=== PATIENT | female | born 1975 | race Hispanic/Latino ===

== ENCOUNTER 2017-07-25 09:58 | Outpatient (CLI) | payer MEDICAID ==
--- NOTE | 2017-07-26 10:37 | Mammography Report ---
BILATERAL DIGITAL SCREENING MAMMOGRAM WITH CAD:07/25/17 CLINICAL: Baseline screening. FINDINGS: The breasts are mostly fatty with a few bilateral scattered fibroglandular densities.A right outer asymmetry with architectural distortion on the CC view requires additional imaging. No suspicious calcifications. The left breast is negative. IMPRESSION: Right asymmetry and architectural distortion requiring further workup. BI-RADS CATEGORY: 0 -- Needs Additional Imaging RECOMMENDATION: Recall for right ML, exaggerated CC and spot magnification CC views and right breast ultrasound if needed. ACR BI-RADS MAMMOGRAPHIC CODES: 0 = Needs additional imaging evaluation; 1 = Negative; 2 = Benign; 3 = Probably benign; 4 = Suspicious; 5 = Malignant; 6 = Known biopsy-proven malignancy COMMENT: 1. Dense breast tissue, i.e., adenosis, fibrocystic changes, etc., may obscure an underlying neoplasm. 2. Approximately 10% of cancers are not detected with mammography. 3. A negative mammography report should not delay biopsy if a clinically suspicious mass is present.
== END 2017-07-25 09:59 | disposition home or self-care (01) ==
LOC: MAMMO 09:58
PROVIDERS: ATTEND Physician Assistant
DX: Z12.31 Encounter for screening mammogram for malignant neoplasm of breast (principal)
CPT/HCPCS: 77067

== ENCOUNTER 2017-08-26 09:12 | Emergency (ER) | payer MEDICAID ==
[2017-08-26 09:29] VITALS: BP 122/74
[2017-08-26 10:04] LABS: Basophils % (Auto) 0.4 % (0.0-1.8); Eosinophils # (Auto) 0.2 K/mm3 (0.0-0.4); Eosinophils % (Auto) 3.8 % (0.0-4.3); Hematocrit 36.5 % (30.3-42.9); Lymphocytes # (Auto) 1.9 K/mm3 (1.2-5.4); Lymphocytes % (Auto) 34.5 % (13.4-35.0); Mean Corpuscular HGB Conc 36 % (30-34); Mean Corpuscular Hemoglobin 30 pg (28-32); Mean Corpuscular Volume 84 fl (79-97); Monocytes # (Auto) 0.4 K/mm3 (0.0-0.8); Monocytes % (Auto) 7.1 % (0.0-7.3); Platelet Count 371 K/mm3 (140-440); Red Blood Count 4.32 M/mm3 (3.65-5.03); Red Cell Distribution Width 13.7 % (13.2-15.2)
[2017-08-26 10:21] LABS: Alanine Aminotransferase 26 units/L (7-56); Albumin 3.7 g/dL (3.9-5); BUN/Creatinine Ratio 14; Blood Urea Nitrogen 11 mg/dL (7-17); Calcium 9.1 mg/dL (8.4-10.2); Hemolysis Index 9
--- NOTE | 2017-08-26 12:44 | Emergency Department Report ---
ED Abdominal Pain HPI - General Chief Complaint: Abdominal Pain Stated Complaint: LEFT SIDE ABDOMINAL PAIN Time Seen by Provider: 08/26/17 12:24 Source: patient Mode of arrival: Ambulatory Limitations: No Limitations - History of Present Illness Initial Comments: Left lower quadrant pain for 1 day no vaginal bleeding no vaginal discharge thinks it radiates to her kidney?, dysuria, c/o l side abd pain for several days , no fever no nausea vomiting or diarrhea MD Complaint: abdominal pain -: Gradual, days(s) Location: LUQ Radiation: LUQ Migration to: L flank Severity: mild, moderate Quality: cramping Consistency: intermittent Associated Symptoms: denies: nausea, vomiting, diarrhea, fever, chills, constipation, dysuria, hematemesis, hematochezia, melena, hematuria, anorexia, syncope - Related Data Home Medications Medication Instructions Recorded Confirmed Last Taken OLANzapine [ZyPREXA] 10 mg PO QDAY 01/20/13 03/08/14 03/08/13 Potassium 99 mg PO DAILY 01/20/13 03/08/14 03/08/13 Pravastatin Sodium [Pravastatin] mg PO HS 01/20/13 03/08/14 03/08/13 Topiramate [Topamax] 100 mg PO BID 03/09/13 03/08/14 03/08/13 Lisinopril [Zestril] 10 mg PO QDAY 03/08/14 03/08/14 Unknown Previous Rx's Medication Instructions Recorded Last Taken Type ALPRAZolam [Xanax TAB] 0.5 mg PO BID PRN #10 tab 03/08/14 Unknown Rx Butalb/Acetamin/Caff 50-325-40 1 each PO Q4H PRN #20 tablet 03/08/14 Unknown Rx [Fioricet] traMADol [Ultram 50 MG tab] 50 mg PO Q4HR PRN #15 tablet 03/08/14 Unknown Rx Amoxicillin [Trimox CAP] 500 mg PO Q8H #30 capsule 05/15/15 Unknown Rx Loratadine [Claritin] 10 mg PO DAILY #30 tablet 05/15/15 Unknown Rx Promethazine /Codeine 5 ml PO Q6H PRN #150 ml 05/15/15 Unknown Rx [Phenergan/Codeine 6.25-10 mg/5 ml] predniSONE [Deltasone] 20 mg PO QDAY #5 tab 05/15/15 Unknown Rx Ibuprofen [Motrin] 400 mg PO Q8H PRN #30 tablet 08/26/17 Unknown Rx Allergies Allergy/AdvReac Type Severity Reaction Status Date / Time codeine Allergy Itching Verified 01/20/13 10:49 Sulfa (Sulfonamide Allergy Itching Verified 01/20/13 10:49 Antibiotics) ED Review of Systems ROS: Stated complaint: LEFT SIDE ABDOMINAL PAIN Other details as noted in HPI Comment: All other systems reviewed and negative Constitutional: denies: diaphoresis, fever, malaise Eyes: denies: eye discharge, vision change ENT: denies: dental pain, hearing loss, epistaxis Respiratory: denies: shortness of breath, SOB with exertion, SOB at rest, stridor Cardiovascular: denies: chest pain, palpitations, dyspnea on exertion, orthopnea , edema, syncope, paroxysmal nocturnal dyspnea Gastrointestinal: abdominal pain. denies: nausea, vomiting, diarrhea, constipation, hematemesis, melena, hematochezia Skin: denies: rash, lesions, change in color, change in hair/nails, pruritus Neurological: denies: headache, weakness, numbness, paresthesias, confusion, abnormal gait, vertigo Hematological/Lymphatic: denies: easy bleeding, easy bruising, swollen glands ED Past Medical Hx - Past Medical History Hx Headaches / Migraines: Yes Hx Psychiatric Treatment: Yes (Bipolar) Hx Asthma: Yes - Surgical History Hx Cholecystectomy: Yes - Social History Smoking Status: Never Smoker Substance Use Type: None - Medications Home Medications: Home Medications Medication Instructions Recorded Confirmed Last Taken Type OLANzapine [ZyPREXA] 10 mg PO QDAY 01/20/13 03/08/14 03/08/13 History Potassium 99 mg PO DAILY 01/20/13 03/08/14 03/08/13 History Pravastatin Sodium [Pravastatin] mg PO HS 01/20/13 03/08/14 03/08/13 History Topiramate [Topamax] 100 mg PO BID 03/09/13 03/08/14 03/08/13 History ALPRAZolam [Xanax TAB] 0.5 mg PO BID PRN #10 tab 03/08/14 Unknown Rx Butalb/Acetamin/Caff 50-325-40 1 each PO Q4H PRN #20 tablet 03/08/14 Unknown Rx [Fioricet] Lisinopril [Zestril] 10 mg PO QDAY 03/08/14 03/08/14 Unknown History traMADol [Ultram 50 MG tab] 50 mg PO Q4HR PRN #15 tablet 03/08/14 Unknown Rx Amoxicillin [Trimox CAP] 500 mg PO Q8H #30 capsule 05/15/15 Unknown Rx Loratadine [Claritin] 10 mg PO DAILY #30 tablet 05/15/15 Unknown Rx Promethazine /Codeine 5 ml PO Q6H PRN #150 ml 05/15/15 Unknown Rx [Phenergan/Codeine 6.25-10 mg/5 ml] predniSONE [Deltasone] 20 mg PO QDAY #5 tab 05/15/15 Unknown Rx Ibuprofen [Motrin] 400 mg PO Q8H PRN #30 tablet 08/26/17 Unknown Rx ED Physical Exam - General Limitations: No Limitations General appearance: alert, in no apparent distress, anxious - Head Head exam: Present: atraumatic, normocephalic - Eye Eye exam: Present: normal appearance, PERRL, EOMI - ENT ENT exam: Present: normal exam, normal orophraynx - Neck Neck exam: Present: normal inspection. Absent: tenderness, meningismus - Respiratory Respiratory exam: Present: normal lung sounds bilaterally. Absent: respiratory distress, wheezes, rales, rhonchi, stridor, chest wall tenderness, accessory muscle use, decreased breath sounds, prolonged expiratory - Cardiovascular Cardiovascular Exam: Present: regular rate, normal rhythm - GI/Abdominal GI/Abdominal exam: Present: soft, tenderness, other (tenderness epigastric left upper quadrant without rebound or guarding). Absent: guarding, rebound, rigid - Extremities Exam Extremities exam: Present: normal inspection, normal capillary refill. Absent: pedal edema, joint swelling, calf tenderness - Back Exam Back exam: Present: normal inspection. Absent: CVA tenderness (L), muscle spasm , paraspinal tenderness, vertebral tenderness - Neurological Exam Neurological exam: Present: alert, oriented X3, CN II-XII intact. Absent: motor sensory deficit - Psychiatric Psychiatric exam: Present: anxious - Skin Skin exam: Present: warm, normal color. Absent: urticaria, vesicles, petechiae , ecchymosis ED Course Vital Signs 08/26/17 09:26 Temperature 98.6 F Pulse Rate 57 L Respiratory 18 Rate Blood Pressure 122/74 O2 Sat by Pulse 97 Oximetry ED Medical Decision Making - Lab Data Result diagrams: 08/26/17 09:40 08/26/17 09:40 - Radiology Data Radiology results: report reviewed - Medical Decision Making Laboratory studies are unremarkable CT is showing splenomegaly. No evidence of rebound or guarding is noted at this time patient is stable for outpatient follow-up with her regular doctor for further evaluationof splenomagly pt informed to avoid contact sports and heavy exercise, to return immediately if wors or persistant abd pain or other problems such as bruising or lightheadedness and verbalizes understainding of need for f/u Critical care attestation.: If time is entered above; I have spent that time in minutes in the direct care of this critically ill patient, excluding procedure time. ED Disposition Clinical Impression: Abdominal pain, Splenomegaly Disposition: DC-01 TO HOME OR SELFCARE Is pt being admited?: No Condition: Stable Instructions: Abdominal Pain (ED) Additional Instructions: Return if new or alarming symptoms such as worsening or persistent pain easy bruising fainting or other problems see her regular doctor in 2 days Prescriptions: Ibuprofen [Motrin] 400 mg PO Q8H PRN #30 tablet PRN Reason: Pain Referrals: PRIMARY CARE, [Primary Care Provider] - 3-5 Days Time of Disposition: 14:05
[2017-08-26 13:04] LABS: Bilirubin,Urine NEG (Negative); Blood,Urine NEG (Negative); Color,Urine Straw (Yellow); Protein,Urine <15 mg/dL mg/dL (Negative); Urobilinogen,Urine < 2.0 mg/dL (<2.0); WBC,Urine < 1.0 /HPF (0.0-6.0)
--- NOTE | 2017-08-26 13:18 | Cat Scan Report ---
CT ABDOMEN AND PELVIS WITHOUT CONTRAST: 08/26/17 12:44 CLINICAL:Left-sided abdominal pain. TECHNIQUE: Volumetric acquisition and 1.25 millimeter scan reconstructions from the lung bases through the pelvis. The study was performed without oral contrast. FINDINGS: Abdomen:Clear lung bases. Normal liver and bile ducts status post cholecystectomy. Normal stomach, duodenum and pancreas. The spleen is mildly enlarged and measures 13.2 cm maximum diameter. No splenic mass or cyst. The portal vasculature appears to be normal on this noncontrast study. No varices or portal thrombus is identified. No ascites. Normal adrenal glands and kidneys. The renal collecting systems and ureters are nondilated. No urinary calculus, mass or cyst. No pneumoperitoneum. The small bowel and colon are normal. The appendix is well imaged and normal. Pelvis: Normal urinary bladder, uterus and rectum. Status post bilateral tubal ligation. Normal ovaries. No adnexal mass or free fluid. Normal sigmoid colon. IMPRESSION: 1. Mild splenomegaly which may explain left-sided abdominal pain. 2. Status post cholecystectomy. 3. Normal urinary tract. 4. Normal pelvis status post bilateral tubal ligation.
== END 2017-08-26 14:16 | disposition home or self-care (01) ==
LOC: ED 09:12
DX: R16.1 Splenomegaly, not elsewhere classified (principal); G43.909 Migraine, unspecified, not intractable, without status migrainosus; Z88.6 Allergy status to analgesic agent; Z88.2 Allergy status to sulfonamides
CPT/HCPCS: 36415; 74176; 80053; 81001; 83690; 84703; 85025; 99284

== ENCOUNTER 2017-09-07 09:10 | Outpatient (CLI) | payer MEDICAID ==
--- NOTE | 2017-09-07 09:50 | Mammography Report ---
RIGHT DIGITAL DIAGNOSTIC MAMMOGRAM : 09/07/17 09:10:00 CLINICAL: Recalled for asymmetry and architectural distortion. COMPARISON:07/25/17 screening FINDINGS: Additional mammographic views were performed and are negative. IMPRESSION: Negative Mammogram. BI-RADS CATEGORY: 1 -- Negative RECOMMENDATION: Routine mammographic screening in one year. ACR BI-RADS MAMMOGRAPHIC CODES: 0 = Needs additional imaging evaluation; 1 = Negative; 2 = Benign; 3 = Probably benign; 4 = Suspicious; 5 = Malignant; 6 = Known biopsy-proven malignancy COMMENT: 1. Dense breast tissue, i.e., adenosis, fibrocystic changes, etc., may obscure an underlying neoplasm. 2. Approximately 10% of cancers are not detected with mammography. 3. A negative mammography report should not delay biopsy if a clinically suspicious mass is present. COMMENT: Patient follow-up letters are generated via our [employer] application.
== END 2017-09-07 09:11 | disposition home or self-care (01) ==
LOC: MAMMO 09:10
PROVIDERS: ATTEND Family Medicine
DX: R92.8 Other abnormal and inconclusive findings on diagnostic imaging of breast (principal)

== ENCOUNTER 2018-01-16 07:22 | Emergency (ER) | payer MEDICAID ==
[2018-01-16 08:11] VITALS: BP 126/75
[2018-01-16 08:38] LABS: Basophils % (Auto) 0.4 % (0.0-1.8); Eosinophils # (Auto) 0.2 K/mm3 (0.0-0.4); Eosinophils % (Auto) 2.6 % (0.0-4.3); Hemoglobin 13.4 gm/dl (10.1-14.3); Lymphocytes # (Auto) 1.5 K/mm3 (1.2-5.4); Lymphocytes % (Auto) 22.1 % (13.4-35.0); Mean Corpuscular HGB Conc 35 % (30-34); Mean Corpuscular Hemoglobin 30 pg (28-32); Mean Corpuscular Volume 86 fl (79-97); Monocytes # (Auto) 0.4 K/mm3 (0.0-0.8); Monocytes % (Auto) 5.1 % (0.0-7.3); Platelet Count 348 K/mm3 (140-440); Red Blood Count 4.54 M/mm3 (3.65-5.03); Red Cell Distribution Width 14.6 % (13.2-15.2)
[2018-01-16 08:51] LABS: BUN/Creatinine Ratio 13; Blood Urea Nitrogen 10 mg/dL (7-17); Hemolysis Index 8
== END 2018-01-16 08:48 | disposition left against medical advice (07) ==
LOC: ED 07:22
DX: R07.89 Other chest pain (principal); Z53.21 Procedure and treatment not carried out due to patient leaving prior to being seen by health care provider
CPT/HCPCS: 36415; 80048; 84484; 85025; 93005; 93010

== ENCOUNTER 2018-06-12 12:34 | Emergency (ER) | payer MEDICAID ==
--- NOTE | 2018-06-12 12:49 | Emergency Department Report ---
Blank Doc - Documentation Documentation: This is a 42 y.o. female that presents with left pelvic pain. She was seen here 10 months ago and told spleen enlarged and could left sided pain. She f/u with PCP 3 weeks ago and diagnosed with H. pylori. Started on clarithromycin and amoxicillin. She completed clarithromycin but continue to feel burning sensation. Fast track for further evaluation.
--- NOTE | 2018-06-12 16:05 | Emergency Department Report ---
HPI - General Chief Complaint: Abdominal Pain Time Seen by Provider: 06/12/18 12:47 - HPI HPI: This is a 42-year-old female who presents to ED stating that she recently was seen for H. pylori infection but was only giving incomplete antibiotic treatment . Patient states she still is expresses some burning sensation in her stomach. She states she was given amoxicillin and clarithromycin and nothing else. Patient is denying fevers/chills/nausea vomiting/abdominal pain/chest pain shortness of breath. Patient states that she needs to full treatment. ED Past Medical Hx - Past Medical History Hx Headaches / Migraines: Yes Hx Psychiatric Treatment: Yes (Bipolar) Hx Asthma: Yes - Surgical History Hx Cholecystectomy: Yes - Social History Smoking Status: Never Smoker Substance Use Type: None - Medications Home Medications: Home Medications Medication Instructions Recorded Confirmed Last Taken Type OLANzapine [ZyPREXA] 10 mg PO QDAY 01/20/13 03/08/14 03/08/13 History Potassium 99 mg PO DAILY 01/20/13 03/08/14 03/08/13 History Pravastatin Sodium [Pravastatin] mg PO HS 01/20/13 03/08/14 03/08/13 History Topiramate [Topamax] 100 mg PO BID 03/09/13 03/08/14 03/08/13 History ALPRAZolam [Xanax TAB] 0.5 mg PO BID PRN #10 tab 03/08/14 Unknown Rx Butalb/Acetamin/Caff 50-325-40 1 each PO Q4H PRN #20 tablet 03/08/14 Unknown Rx [Fioricet] Lisinopril [Zestril] 10 mg PO QDAY 03/08/14 03/08/14 Unknown History traMADol [Ultram 50 MG tab] 50 mg PO Q4HR PRN #15 tablet 03/08/14 Unknown Rx Amoxicillin [Trimox CAP] 500 mg PO Q8H #30 capsule 05/15/15 Unknown Rx Loratadine [Claritin] 10 mg PO DAILY #30 tablet 05/15/15 Unknown Rx Promethazine /Codeine 5 ml PO Q6H PRN #150 ml 05/15/15 Unknown Rx [Phenergan/Codeine 6.25-10 mg/5 ml] predniSONE [Deltasone] 20 mg PO QDAY #5 tab 05/15/15 Unknown Rx Ibuprofen [Motrin] 400 mg PO Q8H PRN #30 tablet 08/26/17 Unknown Rx Clarithromycin 500 mg PO BID #10 tablet 06/12/18 Unknown Rx Dicyclomine [Bentyl] 10 mg PO BID #20 capsule 06/12/18 Unknown Rx Omeprazole 40 mg PO DAILY #14 capsule. 06/12/18 Unknown Rx ED Review of Systems ROS: Stated complaint: LOWER ABD PAIN Other details as noted in HPI Comment: All other systems reviewed and negative Physical Exam - Physical Exam Vital Signs: Vital Signs 06/12/18 12:44 Temperature 98.1 F Pulse Rate 76 Respiratory 16 Rate Blood Pressure 118/77 O2 Sat by Pulse 99 Oximetry Physical Exam: GENERAL: Alert and oriented x3, no apparent distress, Normal Gait, atraumatic. HEAD: Head is normocephalic and a-traumatic. ABDOMEN: No organomegaly was noted,Positive bowel sounds, soft, and non- distended. Nontender to palpation on all Quadrants, NO CVA tenderness. BACK: Full range of motion, no spinal tenderness, nontender to palpation. SKIN: Warm and dry, No lesions, No ulceration or induration present. ED Course Vital Signs 06/12/18 12:44 Temperature 98.1 F Pulse Rate 76 Respiratory 16 Rate Blood Pressure 118/77 O2 Sat by Pulse 99 Oximetry ED Medical Decision Making - Medical Decision Making 42-year-old female presents for H pylori retreatment. Patient had her prescription with just amoxicillin and clindamycin. Will send patient home on PPI, clarithromycin and some Bentyl for pain. Patient had no nausea vomiting or discomfort in the ED. Discussed the follow up with [place] gastroenterologists as referred. Signs are normal she is in no acute distress Critical care attestation.: If time is entered above; I have spent that time in minutes in the direct care of this critically ill patient, excluding procedure time. ED Disposition Clinical Impression: Gastritis Disposition: DC-01 TO HOME OR SELFCARE Is pt being admited?: No Does the pt Need Aspirin: No Condition: Stable Instructions: Abdominal Pain (ED) Additional Instructions: Make sure to follow up with the primary care physician as discussed. Take all your medications as you've been prescribed. If you have any worsening symptoms or develop new symptoms please return to ED immediately. Prescriptions: Clarithromycin 500 mg PO BID #10 tablet Dicyclomine [Bentyl] 10 mg PO BID #20 capsule Omeprazole 40 mg PO DAILY #14 capsule.dr Referrals: MOISES HARRIS PA [Primary Care Provider] - 3-5 Days [facility] [Provider Group] - 3-5 Days Forms: Work/School Release Form(ED) Time of Disposition: 16:13
== END 2018-06-12 16:29 | disposition home or self-care (01) ==
LOC: ED 12:34
CPT/HCPCS: 99282

== ENCOUNTER 2018-11-12 09:30 | Emergency (ER) | payer MEDICAID ==
[2018-11-12 09:37] VITALS: BP 105/72
--- NOTE | 2018-11-12 10:06 | Emergency Department Report ---
HPI - General Chief Complaint: Abdominal Pain Time Seen by Provider: 11/12/18 10:05 - HPI HPI: Pt is a 43-year-old female who comes to the ER complaining of left sided flank pain for 8 months. She did see her PCP who told her she has H. pylori. They treated her. She returned to her PCP retested her for H. pylori at and the patient states the test was negative. She then saw her [employer] and had a normal Pap smear. She has no vag dc. They have sent her for an ultrasound. However her insurance would not cover the ultrasound so she canceled the appointment and came to the ER to get an ultrasound to rule out fibroids. She has no DUB. no fever. she is ambulatory and non toxic with normal vs rx asa topamax zyprexa celexa statin labetolol fneofibrate K LMP 10/22 ED Past Medical Hx - Past Medical History Previous Medical History?: Yes Hx Headaches / Migraines: Yes Hx Psychiatric Treatment: Yes (Bipolar) Hx Asthma: Yes Additional medical history: H. Pylori - Surgical History Past Surgical History?: Yes Hx Cholecystectomy: Yes - Family History Family history: no significant - Social History Smoking Status: Never Smoker Substance Use Type: None - Medications Home Medications: Home Medications Medication Instructions Recorded Confirmed Last Taken Type OLANzapine [ZyPREXA] 10 mg PO QDAY 01/20/13 03/08/14 03/08/13 History Potassium 99 mg PO DAILY 01/20/13 03/08/14 03/08/13 History Pravastatin Sodium [Pravastatin] mg PO HS 01/20/13 03/08/14 03/08/13 History Topiramate [Topamax] 100 mg PO BID 03/09/13 03/08/14 03/08/13 History ALPRAZolam [Xanax TAB] 0.5 mg PO BID PRN #10 tab 03/08/14 Unknown Rx Butalb/Acetamin/Caff 50-325-40 1 each PO Q4H PRN #20 tablet 03/08/14 Unknown Rx [Fioricet] Lisinopril [Zestril] 10 mg PO QDAY 03/08/14 03/08/14 Unknown History traMADol [Ultram 50 MG tab] 50 mg PO Q4HR PRN #15 tablet 03/08/14 Unknown Rx Amoxicillin [Trimox CAP] 500 mg PO Q8H #30 capsule 05/15/15 Unknown Rx Loratadine [Claritin] 10 mg PO DAILY #30 tablet 05/15/15 Unknown Rx Promethazine /Codeine 5 ml PO Q6H PRN #150 ml 05/15/15 Unknown Rx [Phenergan/Codeine 6.25-10 mg/5 ml] predniSONE [Deltasone] 20 mg PO QDAY #5 tab 05/15/15 Unknown Rx Ibuprofen [Motrin] 400 mg PO Q8H PRN #30 tablet 08/26/17 Unknown Rx Clarithromycin 500 mg PO BID #10 tablet 06/12/18 Unknown Rx Dicyclomine [Bentyl] 10 mg PO BID #20 capsule 06/12/18 Unknown Rx Omeprazole 40 mg PO DAILY #14 capsule. 06/12/18 Unknown Rx ED Review of Systems ROS: Stated complaint: LFT SIDE PAIN Other details as noted in HPI Comment: All other systems reviewed and negative Physical Exam - Physical Exam Vital Signs: Vital Signs 11/12/18 09:35 Temperature 98.2 F Pulse Rate 76 Respiratory 20 Rate Blood Pressure 105/72 O2 Sat by Pulse 99 Oximetry Physical Exam: vss alert and oriented s1s2 abd soft non tender no cva tenderness ED Course Vital Signs 11/12/18 09:35 Temperature 98.2 F Pulse Rate 76 Respiratory 20 Rate Blood Pressure 105/72 O2 Sat by Pulse 99 Oximetry ED Medical Decision Making - Medical Decision Making left after exam - Differential Diagnosis ro preg; ro uti Critical care attestation.: If time is entered above; I have spent that time in minutes in the direct care of this critically ill patient, excluding procedure time. ED Disposition Clinical Impression: Chronic abdominal pain Disposition: ELOPED Is pt being admited?: No Additional Instructions: motrin or tylenol can be used for pain warm compresses follow up with [facility] hydrate well diet and activity as tolerated Time of Disposition: 10:13
[2018-11-12 10:36] LABS: Bilirubin,Urine NEG (Negative); Blood,Urine NEG (Negative); Color,Urine Straw (Yellow); Protein,Urine <15 mg/dL mg/dL (Negative); Urobilinogen,Urine < 2.0 mg/dL (<2.0); WBC,Urine < 1.0 /HPF (0.0-6.0)
[2018-11-12 10:41] LABS: HCG Qualitative,Urine Negative (Negative)
== END 2018-11-12 10:22 | disposition left against medical advice (07) ==
LOC: ED 09:30
DX: R10.9 Unspecified abdominal pain (principal); G89.29 Other chronic pain; G43.909 Migraine, unspecified, not intractable, without status migrainosus; F31.9 Bipolar disorder, unspecified; J45.909 Unspecified asthma, uncomplicated; Z90.49 Acquired absence of other specified parts of digestive tract; Z79.899 Other long term (current) drug therapy; Z88.5 Allergy status to narcotic agent; Z88.2 Allergy status to sulfonamides
CPT/HCPCS: 81001; 81025

== ENCOUNTER 2020-08-27 20:31 | Emergency (ER) | payer MEDICAID ==
[2020-08-27 22:59] VITALS: BP 151/89
--- NOTE | 2020-08-28 00:36 | Emergency Department Report ---
Chief Complaint: Medical Clearance Stated Complaint: KNOT ON THE SIDE OF HEAD Time Seen by Provider: 08/28/20 00:31 - HPI History of Present Illness: 45-year-old female patient presents to the emergency department complaints of a "knot on the side of her head." Patient states she noticed this "knot" for the first time today. No history of similar symptoms. The affected area is not painful. Denies fever, chills, ear pain, sore throat, cough, congestion, weight loss, purulent drainage, skin color changes. Denies other complaints at this time. - ROS Review of Systems: GENERAL: Negative for fever. CARDIOVASCULAR: Negative for chest pain. PULMONARY: Negative for shortness of breath. GASTROINTESTINAL: Negative for abdominal pain. MUSCULOSKELETAL: Negative for back pain. NEUROLOGICAL: Negative for headache. INTEGUMENTARY: Positive for "knot." - Exam Vital Signs: Vital Signs 08/27/20 22:55 Temperature 99.9 F H Pulse Rate 81 Respiratory 20 Rate Blood Pressure 151/89 O2 Sat by Pulse 99 Oximetry Physical Exam: General: Awake, appropriately interactive, no acute distress. Neck: Supple. Full range of motion intact. Cardiovascular: Normal peripheral perfusion. Pulmonary: No respiratory distress. Patient is speaking normally without use of accessory muscles. Skin: No apparent rashes or lesions. No nodules on palpation. Neurological: No facial asymmetry. Speech is clear. Follows commands. Patient is alert and oriented. Musculoskeletal: Moves all four extremities spontaneously with normal range of motion. Psych: Cooperative. Appropriate mood and affect. MSE screening note: Focused history and physical exam performed. Due to findings the following was ordered: ED Medical Decision Making - Medical Decision Making Patient presents emergency department requesting evaluation for a "knot on the side of her head." Patient is afebrile, hemodynamically stable, neurological exam is nonfocal. Physical exam is within normal limits. No tenderness. No palpable nodules. No overlying skin changes. Patient will be discharged home to follow-up with primary care provider as needed. Strict return precautions provided. ED Disposition for MSE Clinical Impression: Normal skin exam Disposition: MED SCREENING EXAM-LEFT Is pt being admited?: No Does the pt Need Aspirin: No Condition: Stable Instructions: Medical Screening Exam Additional Instructions: Follow-up with primary care provider as needed. Return to the emergency department immediately for new or worsening symptoms. Referrals: [facility] [Provider Group] - 3-5 Days Time of Disposition: 00:36
== END 2020-08-28 02:16 | disposition left against medical advice (07) ==
LOC: ED 20:31
DX: Z53.21 Procedure and treatment not carried out due to patient leaving prior to being seen by health care provider (principal)

== ENCOUNTER 2021-01-04 21:27 | Emergency (ER) | payer MEDICAID | END 2021-01-05 06:00 | LOC: ED 21:27 | DX: R07.9 Chest pain, unspecified (principal); R06.02 Shortness of breath; Z53.21 Procedure and treatment not carried out due to patient leaving prior to being seen by health care provider ==

== ENCOUNTER 2021-03-02 15:05 | Emergency (ER) | payer MEDICAID ==
[2021-03-02] MEDS ORDERED: ASPIRIN 325 MG TAB PO ONE (15:41)
[2021-03-02 16:32] LABS: Basophils % (Auto) 0.6 % (0.0-1.8); Eosinophils # (Auto) 0.3 K/mm3 (0.0-0.4); Eosinophils % (Auto) 4.8 % (0.0-4.3); Hematocrit 38.4 % (30.3-42.9); Hemoglobin 13.3 gm/dl (10.1-14.3); Lymphocytes # (Auto) 2.2 K/mm3 (1.2-5.4); Lymphocytes % (Auto) 32.2 % (13.4-35.0); Mean Corpuscular HGB Conc 35 % (30-34); Mean Corpuscular Volume 89 fl (79-97); Monocytes # (Auto) 0.4 K/mm3 (0.0-0.8); Monocytes % (Auto) 6.6 % (0.0-7.3); Platelet Count 372 K/mm3 (140-440); Red Cell Distribution Width 13.4 % (13.2-15.2)
--- NOTE | 2021-03-02 16:43 | Emergency Department Report ---
ED Chest Pain HPI - General Chief Complaint: Chest Pain Stated Complaint: pain under left breast, left arm hurting Time Seen by Provider: 03/02/21 15:32 Source: patient Mode of arrival: Ambulatory Limitations: No Limitations - History of Present Illness Initial Comments: Patient is a 45-year-old female presents emergency room complaints of left-sided chest pain that has been occurring for 2 weeks. She states that is under her left breast and she also has discomfort in her left arm. Patient states occasionally she feels shortness of breath. She denies any diaphoresis, nausea, vomiting, leg swelling, calf pain, pleuritic pain. Past medical history of hypertension and hyperlipidemia. She states her mother had a stent placed at age 59. Allergy to codeine and sulfa. Severity scale (0 -10): 8 - Related Data Home Medications Medication Instructions Recorded Confirmed Last Taken OLANzapine [ZyPREXA] 10 mg PO QDAY 01/20/13 03/08/14 03/08/13 Potassium 99 mg PO DAILY 01/20/13 03/08/14 03/08/13 Pravastatin Sodium [Pravastatin] mg PO HS 01/20/13 03/08/14 03/08/13 Topiramate [Topamax] 100 mg PO BID 03/09/13 03/08/14 03/08/13 lisinopriL [Zestril] 10 mg PO QDAY 03/08/14 03/08/14 Unknown Previous Rx's Medication Instructions Recorded Last Taken Type ALPRAZolam [Xanax TAB] 0.5 mg PO BID PRN #10 tab 03/08/14 Unknown Rx Butalb/Acetamin/Caff 50-325-40 1 each PO Q4H PRN #20 tablet 03/08/14 Unknown Rx [Fioricet] traMADoL [Ultram 50 MG tab] 50 mg PO Q4HR PRN #15 tablet 03/08/14 Unknown Rx Amoxicillin [Trimox CAP] 500 mg PO Q8H #30 capsule 05/15/15 Unknown Rx Loratadine (Nf) [Claritin] 10 mg PO DAILY #30 tablet 05/15/15 Unknown Rx Promethazine /Codeine 5 ml PO Q6H PRN #150 ml 05/15/15 Unknown Rx [Phenergan/Codeine 6.25-10 mg/5 ml] predniSONE [Deltasone] 20 mg PO QDAY #5 tab 05/15/15 Unknown Rx Ibuprofen [Motrin] 400 mg PO Q8H PRN #30 tablet 08/26/17 Unknown Rx Clarithromycin 500 mg PO BID #10 tablet 06/12/18 Unknown Rx Dicyclomine [Bentyl] 10 mg PO BID #20 capsule 06/12/18 Unknown Rx Omeprazole 40 mg PO DAILY #14 capsule. 06/12/18 Unknown Rx Aspirin EC [Ecotrin] 325 mg PO QDAY #30 tablet. 10/21/19 Unknown Rx Allergies Allergy/AdvReac Type Severity Reaction Status Date / Time codeine Allergy Itching Verified 06/12/18 12:35 Sulfa (Sulfonamide Allergy Itching Verified 06/12/18 12:35 Antibiotics) Heart Score - HEART Score History: Moderately suspicious EKG: Normal Age: < 45 Risk factors: > 3 risk factors or hx of atherosclerotic disease Troponin: < normal limit HEART Score: 3 - EKG Read Time Time EKG Completed: 15:20 EKG Read Time: 15:25 ED Review of Systems ROS: Stated complaint: pain under left breast, left arm hurting Other details as noted in HPI Comment: All other systems reviewed and negative ED Past Medical Hx - Past Medical History Hx Headaches / Migraines: Yes Hx Psychiatric Treatment: Yes (Bipolar) Hx Asthma: Yes Additional medical history: H. Pylori - Surgical History Hx Cholecystectomy: Yes - Social History Smoking Status: Never Smoker Substance Use Type: None - Medications Home Medications: Home Medications Medication Instructions Recorded Confirmed Last Taken Type OLANzapine [ZyPREXA] 10 mg PO QDAY 01/20/13 03/08/14 03/08/13 History Potassium 99 mg PO DAILY 01/20/13 03/08/14 03/08/13 History Pravastatin Sodium [Pravastatin] mg PO HS 01/20/13 03/08/14 03/08/13 History Topiramate [Topamax] 100 mg PO BID 03/09/13 03/08/14 03/08/13 History ALPRAZolam [Xanax TAB] 0.5 mg PO BID PRN #10 tab 03/08/14 Unknown Rx Butalb/Acetamin/Caff 50-325-40 1 each PO Q4H PRN #20 tablet 03/08/14 Unknown Rx [Fioricet] lisinopriL [Zestril] 10 mg PO QDAY 03/08/14 03/08/14 Unknown History traMADoL [Ultram 50 MG tab] 50 mg PO Q4HR PRN #15 tablet 03/08/14 Unknown Rx Amoxicillin [Trimox CAP] 500 mg PO Q8H #30 capsule 05/15/15 Unknown Rx Loratadine (Nf) [Claritin] 10 mg PO DAILY #30 tablet 05/15/15 Unknown Rx Promethazine /Codeine 5 ml PO Q6H PRN #150 ml 05/15/15 Unknown Rx [Phenergan/Codeine 6.25-10 mg/5 ml] predniSONE [Deltasone] 20 mg PO QDAY #5 tab 05/15/15 Unknown Rx Ibuprofen [Motrin] 400 mg PO Q8H PRN #30 tablet 08/26/17 Unknown Rx Clarithromycin 500 mg PO BID #10 tablet 06/12/18 Unknown Rx Dicyclomine [Bentyl] 10 mg PO BID #20 capsule 06/12/18 Unknown Rx Omeprazole 40 mg PO DAILY #14 capsule. 06/12/18 Unknown Rx Aspirin EC [Ecotrin] 325 mg PO QDAY #30 tablet. 10/21/19 Unknown Rx ED Physical Exam - General Limitations: No Limitations General appearance: alert, in no apparent distress - Head Head exam: Present: atraumatic, normocephalic - Eye Eye exam: Present: normal appearance - ENT ENT exam: Present: mucous membranes moist - Respiratory Respiratory exam: Present: normal lung sounds bilaterally. Absent: respiratory distress, wheezes, rales, rhonchi, stridor, chest wall tenderness, accessory muscle use, decreased breath sounds, prolonged expiratory - Cardiovascular Cardiovascular Exam: Present: regular rate, normal rhythm, normal heart sounds. Absent: systolic murmur, diastolic murmur, rubs, gallop - Neurological Exam Neurological exam: Present: alert, oriented X3 - Psychiatric Psychiatric exam: Present: normal affect, normal mood - Skin Skin exam: Present: warm, dry, intact ED Course Vital Signs 03/02/21 03/02/21 03/02/21 15:09 15:56 16:01 Temperature 98.2 F Pulse Rate 78 Respiratory 16 25 H Rate Blood Pressure 140/86 Blood Pressure 143/89 [Right] O2 Sat by Pulse 98 100 100 Oximetry 03/02/21 03/02/21 03/02/21 16:15 16:30 16:45 Temperature Pulse Rate 63 74 Respiratory 15 15 Rate Blood Pressure 140/86 132/105 140/86 Blood Pressure [Right] O2 Sat by Pulse 100 100 100 Oximetry 03/02/21 03/02/21 03/02/21 17:00 17:24 17:30 Temperature Pulse Rate Respiratory Rate Blood Pressure 126/88 126/88 113/92 Blood Pressure [Right] O2 Sat by Pulse 98 99 98 Oximetry 03/02/21 03/02/21 03/02/21 17:45 17:50 18:00 Temperature 98.0 F Pulse Rate 74 Respiratory 14 Rate Blood Pressure 113/92 113/92 Blood Pressure 121/76 [Right] O2 Sat by Pulse 98 98 100 Oximetry 03/02/21 03/02/21 18:15 18:33 Temperature Pulse Rate Respiratory Rate Blood Pressure 127/103 127/103 Blood Pressure [Right] O2 Sat by Pulse 100 100 Oximetry YOGESH score - Yogesh Score Aspirin use within the Past 7 Days: (0) No ED Medical Decision Making - Lab Data Result diagrams: 03/02/21 16:09 03/02/21 18:34 - EKG Data EKG shows normal: sinus rhythm, axis, intervals Rate: normal - EKG Data 03/02/21 16:42 low voltage diffuse non specific T wave changes - Radiology Data Radiology results: report reviewed Ordering Physician: LINUS SANTOS Date of Service: 03/02/21 Procedure(s): XR chest routine 2V Accession Number(s): [id number] cc: LINUS SANTOS Fluoro Time In Minutes: CHEST 2 VIEWS INDICATION / CLINICAL INFORMATION: Chest Pain. COMPARISON: 10/21/2019 FINDINGS: SUPPORT DEVICES: None. HEART / MEDIASTINUM: No significant abnormality. LUNGS / PLEURA: No significant pulmonary or pleural abnormality. No pneumothorax. ADDITIONAL FINDINGS: No significant additional findings. IMPRESSION: 1. No acute findings. Signer Name: Luke Dobson MD Signed: 03/02/2021 5:28 PM Workstation Name: [id number] Transcribed By: REGGIE Dictated By: Luke Dobson MD Electronically Authenticated By: Luke Dobson MD Signed Date/Time: 03/02/211727 DD/ 27 TD/TT: - Medical Decision Making Patient is a 45-year-old female presents emergency room complaints of left-sided chest pain that has been occurring for 2 weeks. She states that is under her left breast and she also has discomfort in her left arm. Patient states occasionally she feels shortness of breath. She denies any diaphoresis, nausea, vomiting, leg swelling, calf pain, pleuritic pain. Past medical history of hypertension and hyperlipidemia. She states her mother had a stent placed at age 59. Allergy to codeine and sulfa. Vitals are stable. Chest x-ray no acute process. EKG with low voltage and diffuse nonspecific T wave changes. Labs with mild hypokalemia, repleted with K-Dur. Troponin is negative x2. Heart score is 3, low risk for cardiac event. Patient will be referred to cardiology for close follow-up and outpatient stress test. Discussed the importance of primary care follow-up. PERC criteria negative for PE. Discussed return precautions. Advised pt Please follow-up with a allied health professional. Please follow-u p with your primary care doctor. Return to emergency room immediately for any new or worsening symptoms. Critical care attestation.: If time is entered above; I have spent that time in minutes in the direct care of this critically ill patient, excluding procedure time. ED Disposition Clinical Impression: Hypokalemia Chest pain Qualifiers: Chest pain type: unspecified Qualified Code(s): R07.9 - Chest pain, unspecified Disposition: 01 HOME / SELF CARE / HOMELESS Is pt being admited?: No Does the pt Need Aspirin: No Condition: Stable Instructions: Nonspecific Chest Pain, Adult Additional Instructions: Please follow-up with a allied health professional. Please follow-up with your primary care doctor. Return to emergency room immediately for any new or worsening symptoms. Referrals: MOISES HARRIS PA [Primary Care Provider] - 3-5 Days CONNER RIVAS MD [Staff Physician] - 3-5 Days Time of Disposition: 19:36 Print Language: ARABIC
--- NOTE | 2021-03-02 17:33 | XRay Report ---
CHEST 2 VIEWS INDICATION / CLINICAL INFORMATION: Chest Pain. COMPARISON: 10/21/2019 FINDINGS: SUPPORT DEVICES: None. HEART / MEDIASTINUM: No significant abnormality. LUNGS / PLEURA: No significant pulmonary or pleural abnormality. No pneumothorax. ADDITIONAL FINDINGS: No significant additional findings. IMPRESSION: 1. No acute findings. Signer Name: Luke Dobson MD Signed: 03/02/2021 5:28 PM Workstation Name: [id number]
[2021-03-02 17:55] LABS: BUN/Creatinine Ratio 13
[2021-03-02 17:56] LABS: Alanine Aminotransferase TNR units/L (7-56); Albumin TNR g/dL (3.9-5); Blood Urea Nitrogen TNR mg/dL (7-17); Calcium TNR mg/dL (8.4-10.2)
[2021-03-02 17:57] LABS: Hemolysis Index TNR
[2021-03-02 18:47] VITALS: BP 127/103
[2021-03-02 19:25] LABS: Alanine Aminotransferase 80 units/L (7-56); Albumin 4.2 g/dL (3.9-5); BUN/Creatinine Ratio 10; Blood Urea Nitrogen 9 mg/dL (7-17); Calcium 9.2 mg/dL (8.4-10.2); Hemolysis Index 10
[2021-03-02] MEDS ORDERED: POTASSIUM CHLORIDE ER 20 MEQ TAB PO ONE (19:33)
--- NOTE | 2021-03-03 14:36 | Electrocardiograph Report ---
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
== END 2021-03-02 20:17 | disposition home or self-care (01) ==
LOC: ED 15:05
DX: E87.6 Hypokalemia (principal); G43.909 Migraine, unspecified, not intractable, without status migrainosus; J45.909 Unspecified asthma, uncomplicated; F31.9 Bipolar disorder, unspecified; Z88.5 Allergy status to narcotic agent; Z88.2 Allergy status to sulfonamides; Z79.899 Other long term (current) drug therapy
CPT/HCPCS: 36415; 71046; 80053; 83880; 84484; 84703; 85025; 93005; 99284

== ENCOUNTER 2021-07-01 09:28 | Outpatient (CLI) | payer MEDICAID ==
--- NOTE | 2021-07-02 13:33 | Mammography Report ---
DIGITAL SCREENING MAMMOGRAM WITH CAD, 07/01/2021 CLINICAL INFORMATION / INDICATION: Routine screening mammography. SCREENING MAMMOGRAM TECHNIQUE: Digital bilateral 2D mammography was obtained in the craniocaudal and mediolateral obliqu e projections. This examination was interpreted with the benefit of Computer-Aided Detection analysis . COMPARISON: 07/25/17, 09/07/17 FINDINGS: Breast Density: There are scattered areas of fibroglandular density. No dominant mass, suspicious calcifications, or architectural distortion in either breast. IMPRESSION: No mammographic evidence of malignancy. No significant change. Follow up recommendation: Routine yearly BI-RADS Category 1: NEGATIVE A "normal" or negative report should not discourage follow up or biopsy of a clinically significant f inding. A written summary of these findings will be mailed to the patient. The patient will be entered into a mammography reporting system which will generate a reminder letter for the patient's next appointmen t at the appropriate interval. The [employer] recommends yearly mammograms starting at age 40 and continuing as l paul as a woman is in good health. Breast MRI is recommended for women with an approximate 20-25% or greater lifetime risk of breast cancer, including women with a strong family history of breast or [place] cancer or who have been treated for Hodgkin's disease. Signer Name: Rickie Pearson MD Signed: 07/02/2021 1:28 PM Workstation Name: [id number]
== END 2021-07-01 09:29 | disposition home or self-care (01) ==
LOC: MAMMO 09:28
PROVIDERS: ATTEND Family Medicine
DX: Z12.31 Encounter for screening mammogram for malignant neoplasm of breast (principal)
CPT/HCPCS: 77067

== ENCOUNTER 2021-11-14 11:21 | Emergency (ER) | payer MEDICAID ==
[2021-11-14 14:01] VITALS: BP 123/84
[2021-11-14] MEDS ORDERED: predniSONE 20 MG TAB PO ONE (14:19)
--- NOTE | 2021-11-14 14:22 | Emergency Department Report ---
ED Animal Bite HPI - General Chief Complaint: Skin/Abscess/Foreign Body Stated Complaint: RASH/THROAT Time Seen by Provider: 11/14/21 14:09 Source: patient Mode of arrival: Ambulatory Limitations: No Limitations - History of Present Illness Initial Comments: 46-year-old white female with a past medical history of hypertension, hyperlipidemia, and bipolar disorder presents to the emergency department for evaluation of redness and swelling behind right ear. She states that for the last 7 days, she has noticed sharp pain, burning, and redness behind her right ear. She states that it feels like someone is sticking a needle in her intermittently. She denies fever, headache, but states that the redness has gone down her neck and she has some spots on her face also. MD Complaint: animal bite -: days(s) (5-6) Location: head (Right scalp near ear) Animal: other (Insect) Associated Symptoms: erythema, rash. denies: discharge from wound, bleeding, fever, chills, headache, shortness of breath - Related Data Home Medications Medication Instructions Recorded Confirmed Last Taken OLANzapine [ZyPREXA] 10 mg PO QDAY 01/20/13 03/08/14 03/08/13 Potassium 99 mg PO DAILY 01/20/13 03/08/14 03/08/13 Pravastatin Sodium [Pravastatin] mg PO HS 01/20/13 03/08/14 03/08/13 Topiramate [Topamax] 100 mg PO BID 03/09/13 03/08/14 03/08/13 lisinopriL [Zestril] 10 mg PO QDAY 03/08/14 03/08/14 Unknown Previous Rx's Medication Instructions Recorded Last Taken Type ALPRAZolam [Xanax TAB] 0.5 mg PO BID PRN #10 tab 03/08/14 Unknown Rx Butalb/Acetamin/Caff 50-325-40 1 each PO Q4H PRN #20 tablet 03/08/14 Unknown Rx [Fioricet] traMADoL [Ultram 50 MG tab] 50 mg PO Q4HR PRN #15 tablet 03/08/14 Unknown Rx Amoxicillin [Trimox CAP] 500 mg PO Q8H #30 capsule 05/15/15 Unknown Rx Loratadine (Nf) [Claritin] 10 mg PO DAILY #30 tablet 05/15/15 Unknown Rx Promethazine /Codeine 5 ml PO Q6H PRN #150 ml 05/15/15 Unknown Rx [Phenergan/Codeine 6.25-10 mg/5 ml] predniSONE [Deltasone] 20 mg PO QDAY #5 tab 05/15/15 Unknown Rx Ibuprofen [Motrin] 400 mg PO Q8H PRN #30 tablet 08/26/17 Unknown Rx Clarithromycin 500 mg PO BID #10 tablet 06/12/18 Unknown Rx Dicyclomine [Bentyl] 10 mg PO BID #20 capsule 06/12/18 Unknown Rx Omeprazole 40 mg PO DAILY #14 capsule. 06/12/18 Unknown Rx Aspirin EC [Ecotrin] 325 mg PO QDAY #30 tablet. 10/21/19 Unknown Rx cephALEXin [Keflex] 500 mg PO BID 5 Days #10 cap 11/14/21 Unknown Rx Allergies Allergy/AdvReac Type Severity Reaction Status Date / Time codeine Allergy Itching Verified 06/12/18 12:35 Sulfa (Sulfonamide Allergy Itching Verified 06/12/18 12:35 Antibiotics) ED Review of Systems ROS: Stated complaint: RASH/THROAT Other details as noted in HPI Comment: All other systems reviewed and negative Constitutional: denies: chills, fever, malaise, weakness Eyes: denies: vision change ENT: denies: congestion Respiratory: denies: cough, shortness of breath Cardiovascular: denies: chest pain, palpitations Gastrointestinal: denies: abdominal pain, nausea, vomiting Musculoskeletal: denies: back pain Neurological: denies: headache, weakness ED Past Medical Hx - Past Medical History Hx Headaches / Migraines: Yes Hx Psychiatric Treatment: Yes (Bipolar) Hx Asthma: Yes Additional medical history: H. Pylori - Surgical History Hx Cholecystectomy: Yes - Social History Smoking Status: Never Smoker Substance Use Type: None - Medications Home Medications: Home Medications Medication Instructions Recorded Confirmed Last Taken Type OLANzapine [ZyPREXA] 10 mg PO QDAY 01/20/13 03/08/14 03/08/13 History Potassium 99 mg PO DAILY 01/20/13 03/08/14 03/08/13 History Pravastatin Sodium [Pravastatin] mg PO HS 01/20/13 03/08/14 03/08/13 History Topiramate [Topamax] 100 mg PO BID 03/09/13 03/08/14 03/08/13 History ALPRAZolam [Xanax TAB] 0.5 mg PO BID PRN #10 tab 03/08/14 Unknown Rx Butalb/Acetamin/Caff 50-325-40 1 each PO Q4H PRN #20 tablet 03/08/14 Unknown Rx [Fioricet] lisinopriL [Zestril] 10 mg PO QDAY 03/08/14 03/08/14 Unknown History traMADoL [Ultram 50 MG tab] 50 mg PO Q4HR PRN #15 tablet 03/08/14 Unknown Rx Amoxicillin [Trimox CAP] 500 mg PO Q8H #30 capsule 05/15/15 Unknown Rx Loratadine (Nf) [Claritin] 10 mg PO DAILY #30 tablet 05/15/15 Unknown Rx Promethazine /Codeine 5 ml PO Q6H PRN #150 ml 05/15/15 Unknown Rx [Phenergan/Codeine 6.25-10 mg/5 ml] predniSONE [Deltasone] 20 mg PO QDAY #5 tab 05/15/15 Unknown Rx Ibuprofen [Motrin] 400 mg PO Q8H PRN #30 tablet 08/26/17 Unknown Rx Clarithromycin 500 mg PO BID #10 tablet 06/12/18 Unknown Rx Dicyclomine [Bentyl] 10 mg PO BID #20 capsule 06/12/18 Unknown Rx Omeprazole 40 mg PO DAILY #14 capsule. 06/12/18 Unknown Rx Aspirin EC [Ecotrin] 325 mg PO QDAY #30 tablet. 10/21/19 Unknown Rx cephALEXin [Keflex] 500 mg PO BID 5 Days #10 cap 11/14/21 Unknown Rx ED Physical Exam - General Limitations: No Limitations General appearance: alert, in no apparent distress - Head Head exam: Present: atraumatic. Absent: normocephalic - Expanded Head Exam Expanded Head exam: Absent: laceration, abrasion, contusion, hematoma 1 - Noted to have small demetrius that resembles an insect bite surrounded by erythema and minimal edema. Noted to have the same type demetrius 3 [address] places along same area of scalp with erythema and edema noted to facial area also. All areas tender to touch. No purulent drainage noted. - Eye Eye exam: Present: normal appearance. Absent: conjunctival injection - ENT ENT exam: Present: normal exam, normal orophraynx - Neck Neck exam: Present: normal inspection, lymphadenopathy (Right side only). Absent: tenderness - Respiratory Respiratory exam: Absent: respiratory distress - Cardiovascular Cardiovascular Exam: Present: regular rate - GI/Abdominal GI/Abdominal exam: Absent: distended, tenderness - Extremities Exam Extremities exam: Present: normal inspection, full ROM, normal capillary refill. Absent: tenderness, pedal edema, joint swelling, calf tenderness - Back Exam Back exam: Present: normal inspection - Neurological Exam Neurological exam: Present: alert, oriented X3, CN II-XII intact, normal gait - Psychiatric Psychiatric exam: Present: normal affect, normal mood - Skin Skin exam: Present: warm, dry, intact, normal color ED Course Vital Signs 11/14/21 11/14/21 11:31 13:57 Temperature 97.6 F 97.4 F L Pulse Rate 76 72 Respiratory 16 20 Rate Blood Pressure 123/84 Blood Pressure 149/89 124/78 [Right] O2 Sat by Pulse 97 98 Oximetry Critical care attestation.: If time is entered above; I have spent that time in minutes in the direct care of this critically ill patient, excluding procedure time. ED Disposition Clinical Impression: Insect bite Qualifiers: Encounter type: initial encounter Site of insect bite: head Site of insect bite of head: scalp Qualified Code(s): S00.06XA - Insect bite (nonvenomous) of scalp, initial encounter Disposition: 01 HOME / SELF CARE / HOMELESS Is pt being admited?: No Does the pt Need Aspirin: No Condition: Stable Instructions: Insect Bite, Adult, [id number] Additional Instructions: Take medications as prescribed follow-up with your primary care provider if no improvement or worsening symptoms. Return to the emergency department as needed. Prescriptions: cephALEXin [Keflex] 500 mg PO BID 5 Days #10 cap Referrals: PRIMARY CARE, [Primary Care Provider] - 3-5 Days Time of Disposition: 14:22 ED Medical Decision Making - Medical Decision Making 46-year-old white female with a past medical history of hypertension, hyperlipid emia, and bipolar disorder presents to the emergency department for evaluation of redness and swelling behind right ear. She states that for the last 7 days, she has noticed sharp pain, burning, and redness behind her right ear. She states that it feels like someone is sticking a needle in her intermittently. She denies fever, headache, but states that the redness has gone down her neck and she has some spots on her face also. . Moderate erythema noted to probable insect bites. Patient be treated with one- time dose of prednisone. Areas noted to be edematous tender and worsening per patient. Patient be treated with 5-day course of Keflex and advised to follow- up with her primary care provider if no improvement or worsening symptoms. She is advised to return to the emergency department as needed. She verbalizes understanding of and agreement with plan of care.
== END 2021-11-14 14:43 | disposition home or self-care (01) ==
LOC: ED 11:21
DX: S00.06XA Insect bite (nonvenomous) of scalp, initial encounter (principal); G43.909 Migraine, unspecified, not intractable, without status migrainosus; F31.9 Bipolar disorder, unspecified; J45.909 Unspecified asthma, uncomplicated; Z91.09 Other allergy status, other than to drugs and biological substances; Z88.1 Allergy status to other antibiotic agents; Z79.899 Other long term (current) drug therapy; W57.XXXA Bitten or stung by nonvenomous insect and other nonvenomous arthropods, initial encounter; Y93.89 Activity, other specified; Y92.89 Other specified places as the place of occurrence of the external cause; Y99.8 Other external cause status
CPT/HCPCS: 99282